=== PATIENT | male | born 1955 | race African-American/Black ===

== ENCOUNTER → 2016-11-21 | Outpatient (REF) | payer OTHER ==
[~2016-11-21] MED LIST: ASPI1TAB PO; ATOR1TAB21 PO; AUGM500T34 PO; CELE-19 PO; CLON0.5T PO; CYMB60CA3 PO; D400400C PO; DOXA1TAB49 PO; GLIM2TA PO; HYZA100T6 PO; KLOR1POW2 PO; LORA10TA2 PO; LYRI300C PO; OMEP10CASR PO; SITA50TAB PO; TOPR100T PO; [UNRECOGNIZED DRUG - CODE] PO; janumet PO
[2016-11-21 13:22] LABS: BASO # 0.1 K/mm3 (0.0-0.2); BASO % 1.5 % (0.0-1.0); EOS # 0.3 K/mm3 (0.0-0.50); EOS % 5.9 % (0.0-3.0); LARGE UNSTAINED CELL # 0.1 K/mm3 (0.0-0.4); LARGE UNSTAINED CELL % 2.8 % (0.0-4.0); LYMPH # 1.5 K/mm3 (1.5-4.5); LYMPH % 30.2 % (24.0-44.0); MEAN CORPUSCULAR HEMOGLOBIN 31.2 pg (27.0-33.0); MEAN CORPUSCULAR VOLUME 91.6 fl (80.0-96.0); MONO # 0.4 K/mm3 (0.0-0.8); MONO % 8.4 % (0.0-5.0); NEUTROPHILS # 2.3 K/mm3 (1.8-7.7); NEUTROPHILS % 51.4 % (36.0-66.0); PLATELET COUNT, AUTOMATED 184 k/mm3 (150-450); RED CELL DISTRIBUTION WIDTH 12.8 % (11.5-14.5); WHITE BLOOD COUNT 4.4 K/mm3 (4.0-10.0)
[2016-11-21 13:48] LABS: ALBUMIN 4.2 GM/DL (3.2-5.2); ALKALINE PHOSPHATASE 86 U/L (45-117); ALT/SGPT 21 U/L (12-78); ANION GAP 7 MEQ/L (8-16); AST/SGOT 17 U/L (15-37); BILIRUBIN,TOTAL 0.7 MG/DL (0.2-1.0); BLOOD UREA NITROGEN 16 MG/DL (7-18); CALCIUM LEVEL 9.5 MG/DL (8.8-10.2); CARBON DIOXIDE LEVEL 33 MEQ/L (21-32); CHLORIDE LEVEL 99 MEQ/L (98-107); CHOLESTEROL LEVEL 181 MG/DL (<200); GLOMERULAR FILTRATION RATE > 60.0 (>49); GLUCOSE, FASTING 127 MG/DL (80-110); PERCENT SATURATION 32.4 % (19.7-37.4); POTASSIUM SERUM 4.5 MEQ/L (3.5-5.1); SODIUM LEVEL 139 MEQ/L (136-145); TOTAL IRON BINDING CAPACITY 336 UG/DL (250-450); TRIGLYCERIDES LEVEL 161 MG/DL (<150)
== END ==
LOC: M LABNEURO 13:03
PROVIDERS: ATTEND Emergency Medicine
DX: D50.9 Iron deficiency anemia, unspecified (principal); E11.42 Type 2 diabetes mellitus with diabetic polyneuropathy; I10 Essential (primary) hypertension; E78.2 Mixed hyperlipidemia; E55.9 Vitamin D deficiency, unspecified

== ENCOUNTER → 2017-02-09 | Outpatient (REF) | payer OTHER ==
[~2017-02-09] MED LIST changes: -CELE-19 PO; +CELE1CAP4 PO
[2017-02-09 13:32] LABS: ANION GAP 8 MEQ/L (8-16); BLOOD UREA NITROGEN 13 MG/DL (7-18); CALCIUM LEVEL 9.6 MG/DL (8.8-10.2); CARBON DIOXIDE LEVEL 29 MEQ/L (21-32); CHLORIDE LEVEL 101 MEQ/L (98-107); CREATININE FOR GFR 1.11 MG/DL (0.70-1.30); GLOMERULAR FILTRATION RATE > 60.0 (>49); GLUCOSE, FASTING 145 MG/DL (80-110); POTASSIUM SERUM 4.2 MEQ/L (3.5-5.1); SODIUM LEVEL 138 MEQ/L (136-145)
== END ==
LOC: M LABNEURO 12:58
PROVIDERS: ATTEND Psychiatry & Neurology Neurology
DX: R26.9 Unspecified abnormalities of gait and mobility (principal); R93.0 Abnormal findings on diagnostic imaging of skull and head, not elsewhere classified

== ENCOUNTER → 2017-07-20 | Outpatient (CLI) | payer OTHER ==
[2017-07-20 08:51] LABS: ALBUMIN/GLOBULIN RATIO 1.33 (1.00-1.93); ALKALINE PHOSPHATASE 90 U/L (45-117); ALT/SGPT 25 U/L (12-78); ANION GAP 8 MEQ/L (8-16); AST/SGOT 18 U/L (7-37); BILIRUBIN,TOTAL 0.4 MG/DL (0.2-1.0); BLOOD UREA NITROGEN 15 MG/DL (7-18); CARBON DIOXIDE LEVEL 27 MEQ/L (21-32); CHLORIDE LEVEL 108 MEQ/L (98-107); CHOLESTEROL LEVEL 192 MG/DL (<200); CREATININE FOR GFR 0.85 MG/DL (0.70-1.30); GLOMERULAR FILTRATION RATE > 60.0 (>49); GLUCOSE, FASTING 129 MG/DL (80-110); HDL CHOLESTEROL 48 MG/DL (>40); NON-HDL-C 144 MG/DL; POTASSIUM SERUM 3.7 MEQ/L (3.5-5.1); SODIUM LEVEL 143 MEQ/L (136-145); TRIGLYCERIDES LEVEL 100 MG/DL (<150)
[2017-07-20 09:21] LABS: MALB URINE SIEMENS 91.4 MG/L; MAU/CREAT RATIO 63.9 MCG/MG (0.0-30.0)
[2017-07-20 09:32] LABS: ESTIMATED AVERAGE GLUCOSE 166 MG/DL (60-110); HEMOGLOBIN A1c 7.4 %
[2017-07-20 09:56] LABS: TOTAL 25(OH) VITAMIN D 39.1 NG/ML (30.0-100.0)
== END ==
LOC: M LAB 07:38
DX: I10 Essential (primary) hypertension (principal); E78.2 Mixed hyperlipidemia; E55.9 Vitamin D deficiency, unspecified; E11.40 Type 2 diabetes mellitus with diabetic neuropathy, unspecified

== ENCOUNTER → 2017-07-20 | Outpatient (CLI) | payer OTHER | LOC: M RAD 07:17 | DX: J32.9 Chronic sinusitis, unspecified (principal) ==

== ENCOUNTER → 2017-10-07 | Outpatient (CLI) | payer OTHER ==
[2017-10-07 10:00] LABS: FOLLICLE STIMULATING HORMONE 5.3 mIU/mL (1.4-18.1); LUTEINIZING HORMONE 3.4 mIU/mL (1.5-9.3)
[2017-10-09 00:07] LABS: TESTOSTERONE FREE (DIRECT) 7.6 pg/mL (6.6-18.1)
== END ==
LOC: M LAB 08:07
DX: R53.83 Other fatigue (principal)
CPT/HCPCS: 83001

== ENCOUNTER → 2017-11-16 | Outpatient (CLI) | payer OTHER ==
[2017-11-16 08:32] LABS: BASO # 0.1 10^3/uL (0.0-0.2); BASO % 2.2 % (0.0-1.0); EOS # 0.3 10^3/uL (0.0-0.50); EOS % 7.6 % (0.0-3.0); HEMATOCRIT 48.3 % (42.0-52.0); HEMOGLOBIN 16.4 g/dl (13.5-17.5); IMMATURE GRANULOCYTE % 0.3 % (0-3.0); LYMPH # 1.3 10^3/uL (1.5-4.5); LYMPH % 35.5 % (24.0-44.0); MEAN CORPUSCULAR HEMOGLOBIN 30.1 pg (27.0-33.0); MEAN CORPUSCULAR VOLUME 88.6 fl (80.0-96.0); MONO # 0.4 10^3/uL (0.0-0.8); MONO % 10.6 % (0.0-5.0); NEUTROPHILS # 1.6 10^3/uL (1.8-7.7); NEUTROPHILS % 43.8 % (36.0-66.0); PLATELET COUNT, AUTOMATED 214 10^3/uL (150-450); RED BLOOD COUNT 5.45 10^6/uL (4.30-6.10); RED CELL DISTRIBUTION WIDTH 13.2 % (11.5-14.5); WHITE BLOOD COUNT 3.7 10^3/uL (4.0-10.0)
[2017-11-16 08:58] LABS: ALBUMIN 4.2 GM/DL (3.2-5.2); ALBUMIN/GLOBULIN RATIO 1.27 (1.00-1.93); ALKALINE PHOSPHATASE 93 U/L (45-117); ALT/SGPT 26 U/L (12-78); ANION GAP 9 MEQ/L (8-16); AST/SGOT 20 U/L (7-37); BILIRUBIN,TOTAL 0.8 MG/DL (0.2-1.0); BLOOD UREA NITROGEN 14 MG/DL (7-18); CALCIUM LEVEL 9.1 MG/DL (8.8-10.2); CARBON DIOXIDE LEVEL 25 MEQ/L (21-32); CHLORIDE LEVEL 105 MEQ/L (98-107); CHOLESTEROL LEVEL 186 MG/DL (<200); CHOLESTEROL RISK RATIO 3.957 (<5); CREATININE FOR GFR 1.07 MG/DL (0.70-1.30); GLOMERULAR FILTRATION RATE > 60.0 (>49); GLUCOSE, FASTING 95 MG/DL (70-100); HDL CHOLESTEROL 47 MG/DL (>40); NON-HDL-C 139 MG/DL; POTASSIUM SERUM 3.8 MEQ/L (3.5-5.1); SODIUM LEVEL 139 MEQ/L (136-145); TOTAL PROTEIN 7.5 GM/DL (6.4-8.2); TRIGLYCERIDES LEVEL 120 MG/DL (<150)
[2017-11-16 09:07] LABS: MALB URINE SIEMENS 62.8 MG/L; MAU/CREAT RATIO 44.5 MCG/MG (0.0-30.0)
[2017-11-16 10:37] LABS: TOTAL 25(OH) VITAMIN D 35.8 NG/ML (30.0-100.0)
[2017-11-16 11:33] LABS: ESTIMATED AVERAGE GLUCOSE 131 MG/DL (60-110); HEMOGLOBIN A1c 6.2 %
== END ==
LOC: M LAB 07:50
DX: E11.69 Type 2 diabetes mellitus with other specified complication (principal); I10 Essential (primary) hypertension; E78.2 Mixed hyperlipidemia; E55.9 Vitamin D deficiency, unspecified; D50.9 Iron deficiency anemia, unspecified
CPT/HCPCS: 80053

== ENCOUNTER → 2018-04-12 | Outpatient (REF) | payer OTHER ==
[2018-04-12 13:44] LABS: BASO # 0.1 10^3/uL (0.0-0.2); BASO % 1.6 % (0.0-1.0); EOS # 0.4 10^3/uL (0.0-0.50); HEMATOCRIT 50.9 % (42.0-52.0); HEMOGLOBIN 16.9 g/dl (13.5-17.5); IMMATURE GRANULOCYTE % 0.3 % (0-3.0); LYMPH # 1.3 10^3/uL (1.5-4.5); LYMPH % 34.3 % (24.0-44.0); MEAN CORPUSCULAR HEMOGLOBIN 29.2 pg (27.0-33.0); MEAN CORPUSCULAR HGB CONC 33.2 g/dl (32.0-36.5); MEAN CORPUSCULAR VOLUME 88.1 fl (80.0-96.0); MONO # 0.4 10^3/uL (0.0-0.8); MONO % 9.8 % (0.0-5.0); NEUTROPHILS # 1.7 10^3/uL (1.8-7.7); PLATELET COUNT, AUTOMATED 224 10^3/uL (150-450); RED BLOOD COUNT 5.78 10^6/uL (4.30-6.10); RED CELL DISTRIBUTION WIDTH 13.9 % (11.5-14.5); WHITE BLOOD COUNT 3.8 10^3/uL (4.0-10.0)
[2018-04-12 13:58] LABS: ALBUMIN 4.2 GM/DL (3.2-5.2); ALBUMIN/GLOBULIN RATIO 1.35 (1.00-1.93); ALKALINE PHOSPHATASE 116 U/L (45-117); ALT/SGPT 23 U/L (12-78); ANION GAP 8 MEQ/L (8-16); AST/SGOT 19 U/L (7-37); BILIRUBIN,TOTAL 0.5 MG/DL (0.2-1.0); BLOOD UREA NITROGEN 15 MG/DL (7-18); CALCIUM LEVEL 9.3 MG/DL (8.8-10.2); CARBON DIOXIDE LEVEL 25 MEQ/L (21-32); CHLORIDE LEVEL 107 MEQ/L (98-107); CHOLESTEROL LEVEL 211 MG/DL (<200); CHOLESTEROL RISK RATIO 4.586 (<5); CREATININE FOR GFR 0.98 MG/DL (0.70-1.30); GLOMERULAR FILTRATION RATE > 60.0 (>49); GLUCOSE, FASTING 124 MG/DL (70-100); HDL CHOLESTEROL 46 MG/DL (>40); LDL CHOLESTEROL 137 MG/DL (<100); NON-HDL-C 165 MG/DL; POTASSIUM SERUM 4.6 MEQ/L (3.5-5.1); SODIUM LEVEL 140 MEQ/L (136-145); TOTAL PROTEIN 7.3 GM/DL (6.4-8.2); TRIGLYCERIDES LEVEL 138 MG/DL (<150)
[2018-04-12 14:27] LABS: TOTAL 25(OH) VITAMIN D 18.3 NG/ML (30.0-100.0)
[2018-04-12 14:29] LABS: ESTIMATED AVERAGE GLUCOSE 140 MG/DL (60-110); HEMOGLOBIN A1c 6.5 %
== END ==
LOC: M LABNEURO 08:07
DX: E11.69 Type 2 diabetes mellitus with other specified complication (principal); I10 Essential (primary) hypertension; E78.2 Mixed hyperlipidemia; E55.9 Vitamin D deficiency, unspecified; D50.9 Iron deficiency anemia, unspecified

== ENCOUNTER → 2018-07-26 | Outpatient (CLI) | payer OTHER ==
[~2018-07-26] MED LIST changes: -CLON0.5T PO; +CLON0.5T8 PO; +LORA-243 PO; -LORA10TA2 PO; -TOPR100T PO; +TOPR100T13 PO
--- NOTE | 2018-07-26 15:46 | REP ---
CT Head without contrast HISTORY: Syncope COMPARISON: None Areas of decreased attenuation are present in the periventricular white matter. This represents small-vessel ischemic disease. There is no intraparenchymal hemorrhage, acute infarct, mass or midline shift. The ventricular system and cortical sulci are dilated consistent with mild volume loss. There is no extra cerebral collection. There is no fracture. The visualized sinuses are clear. IMPRESSION: 1. Small vessel ischemic disease. 2. Mild volume loss. Electronically Signed by Kranthi Berger MD 07/26/2018 03:36 P
== END ==
LOC: M RAD 12:48
PROVIDERS: ATTEND Otolaryngology
DX: M26.69 Other specified disorders of temporomandibular joint (principal)

== ENCOUNTER → 2018-10-05 | Outpatient (CLI) | payer OTHER ==
--- NOTE | 2018-10-05 09:28 | REP ---
Urinary tract sonography with renal artery Doppler flow assessment: History: Poorly controlled hypertension resistant to three medicines. Morphologic findings: Scanning at the level of the urinary bladder shows that it is empty at the time of scanning. Renal cortical echogenicity pattern is normal and contours are smooth on both sides. There is a cyst in the upper pole region of the left kidney measuring 1.3 cm in greatest diameter. No hydronephrosis seen on either side. No mass or other cyst is seen. The left kidney measures 10.8 x 6.0 x 6.6 cm. Right renal dimensions of 10.0 x 6.6 x 6.0 cm. Renal Doppler study: Peak systolic flow velocity in the abdominal aorta at the level of the main renal arteries is normal at 80 cm/s. Peak systolic flow velocity in the left main renal artery is recorded at 128 and that in the right at 144 cm/s. Renal to aortic flow velocity ratios are therefore normal at 1.8 on the right and 1.6 on the left. Resistive indices and acceleration times are measured in the upper, mid, and lower pole intralobar arteries of each kidney. These values are normal bilaterally. Impression: Small parapelvic cyst left kidney. Otherwise normal. There is no renal Doppler evidence to suggest renal artery stenosis. Electronically Signed by Lucian Jensen MD 10/05/2018 11:29 A
== END ==
LOC: M RAD 06:43
PROVIDERS: ATTEND Family Medicine
DX: I10 Essential (primary) hypertension (principal); N28.1 Cyst of kidney, acquired

== ENCOUNTER → 2019-05-31 | Outpatient (CLI) | payer OTHER ==
[~2019-05-31] MED LIST changes: -ASPI1TAB PO; +ASPI81TA26 PO; -GLIM2TA PO; +GLIM2TAB29 PO; +TOPR100T PO; -TOPR100T13 PO
--- NOTE | 2019-05-31 16:34 | REP ---
CT paranasal sinuses: New 05/31/2019. Indication: Sinusitis. Comparison: 07/20/2017. Technique: Unenhanced axial images of the paranasal sinuses were performed with coronal reconstructions provided. Findings: Frothy secretions are noted within the posterior right maxillary sinus indicative of acute inflammation. Postoperative sequelae are present bilaterally. There is mild periosteal mucosal thickening throughout the ethmoid and maxillary sinuses. The sinonasal passageways are patent. The mastoid air cells are clear. No significant ocular, intraorbital or intracranial abnormalities are detected. Impression: Postoperative sequelae with acute on chronic paranasal sinus mucosal disease as described. Electronically Signed by Tavo Godwin DO 05/31/2019 04:25 P
== END ==
LOC: M RAD 15:29
PROVIDERS: ATTEND Family Medicine
DX: J32.0 Chronic maxillary sinusitis (principal)

== ENCOUNTER → 2019-07-28 | Outpatient (CLI) | payer OTHER ==
[~2019-07-28] MED LIST changes: +CLON0.5T2 PO; -CLON0.5T8 PO
== END ==
LOC: M LAB 08:18
PROVIDERS: ATTEND Physician Assistant
DX: R97.20 Elevated prostate specific antigen [PSA] (principal)

== ENCOUNTER → 2020-01-16 | Outpatient (CLI) | payer OTHER ==
--- NOTE | 2020-01-16 11:55 | REP ---
CT PARANASAL SINUSES: INDICATION: Sinusitis. TECHNIQUE: Unenhanced axial CT images of the paranasal sinuses were performed with coronal reconstructions provided. COMPARISON: 05/31/2019 FINDINGS: There are no air-fluid levels or frothy secretions to indicate an acute inflammation. Periosteal mucosal thickening is present within the ethmoid air cells particularly anteriorly as well as the left greater than right dependent maxillary sinuses. Subchondral cysts of the right TMJ is noted. The mastoid air cells are clear. The sinonasal passage ways are patent. Postoperative sequelae are noted. IMPRESSION: Chronic ethmoid and maxillary sinus disease as described. Unreviewed
== END ==
LOC: M RAD 09:43
PROVIDERS: ATTEND Otolaryngology
DX: J32.0 Chronic maxillary sinusitis (principal); J32.2 Chronic ethmoidal sinusitis

== ENCOUNTER → 2020-01-30 | Outpatient (CLI) | payer OTHER ==
[~2020-01-30] MED LIST changes: +BACL10TA2 PO; +DIAZ5TAB PO; +METH1TAB40 PO; +TRIA0.2571 PO; +TRUL0.5I INJ
== END ==
LOC: M LAB 10:33
PROVIDERS: ATTEND Otolaryngology
DX: J31.0 Chronic rhinitis (principal)

== ENCOUNTER 2020-02-27 08:40 | Day surgery (SDC) | payer OTHER ==
[~2020-02-27 08:40] MED LIST changes: -BACL10TA2 PO; -DIAZ5TAB PO; -METH1TAB40 PO; -TRIA0.2571 PO; -TRUL0.5I INJ
[2020-02-27] MEDS ORDERED: LIDOCAINE W/EPINEPHRINE 1% 20ML VIAL As Ordered ONE (09:42)
[2020-02-27] MEDS ORDERED: METHYLENE BLUE 0.5% (5MG/ML) 10 ML AMP (PROVAYBLUE) As Ordered ONE (09:45)
[2020-02-27] MEDS ORDERED: OXYMETAZOLINE 0.05% NASAL SPRAY (AFRIN) As Ordered ONE (09:46)
[2020-02-27] MEDS ORDERED: EPINEPHrine 1MG/ML INJ 30ML MD-VIAL As Ordered ONE (09:46)
[2020-02-27] MEDS ORDERED: MIDAZOLAM INJ 2MG/2ML VIAL (J2250 PER 1MG) As Ordered ONE (09:50)
[2020-02-27] MEDS ORDERED: LIDOCAINE 2% 100MG/5ML SDV (FOR ANES.) As Ordered ONE (09:50)
[2020-02-27] MEDS ORDERED: ROCURONIUM BROMIDE 50 MG/5 ML VIAL As Ordered ONE (09:50)
[2020-02-27] MEDS ORDERED: fentaNYL 100 MCG/2 ML INJECTION (J3010) As Ordered ONE (09:50)
[2020-02-27] MEDS ORDERED: METOCLOPRAMIDE INJ 10MG/2ML VIAL (J2765 PER 1) As Ordered ONE (09:51)
[2020-02-27] MEDS ORDERED: ePHEDrine SULFATE 25 MG/5 ML(5MG/ML) SYRINGE As Ordered ONE (09:51)
[2020-02-27] MEDS ORDERED: ONDANSETRON 4MG/2ML VIAL As Ordered ONE (09:54)
[2020-02-27] MEDS ORDERED: SUGAMMADEX SODIUM 500 MG/5 ML VIAL (BRIDION) As Ordered ONE (09:55)
--- NOTE | 2020-04-19 11:37 | RO ---
DATE OF OPERATION: 02/27/2020 PREOPERATIVE DIAGNOSIS: Chronic rhinitis. POSTOPERATIVE DIAGNOSIS: Chronic rhinitis. OPERATIVE PROCEDURE: Bilateral turbinectomy. DESCRIPTION OF PROCEDURE: Under general anesthesia with the patient intubated, the patient was draped in the usual manner. I used pledgets of adrenaline 1:100,000 infiltrated with Lidocaine and epinephrine. I made an incision anterior to the inferior turbinate on both sides. I elevated the mucoperichondrium off of the mari. Then using the microdebrider, I removed portions of the mari anteriorly. I did use forceps to do this as well. Once this was done, then I sutured the wound closed with 4-0 Chromic. The patient tolerated the procedure well and was transferred to the recovery room in excellent condition. Minimal blood loss. SONAM
== END 2020-02-27 12:12 | disposition home or self-care (01) ==
LOC: M SDC 08:40
PROVIDERS: ATTEND Otolaryngology
DX: J31.0 Chronic rhinitis (principal); J45.909 Unspecified asthma, uncomplicated; F32.9 Major depressive disorder, single episode, unspecified; F41.9 Anxiety disorder, unspecified; E11.9 Type 2 diabetes mellitus without complications; I10 Essential (primary) hypertension; Z79.899 Other long term (current) drug therapy
CPT/HCPCS: 30802; J2250; J2405; J2765; J3010; Q9968

== ENCOUNTER 2020-05-19 12:01 | Emergency (ER) | payer OTHER ==
[~2020-05-19] VITALS: Ht 188 cm; Wt 102.3 kg
[2020-05-19] MEDS ORDERED: TRIA0.2571 PO (12:12)
[2020-05-19] MEDS ORDERED: METH1TAB40 PO (12:12)
[2020-05-19] MEDS ORDERED: DIAZ5TAB PO (12:12)
[2020-05-19] MEDS ORDERED: TRUL0.5I INJ (12:12)
[2020-05-19] MEDS ORDERED: NS 1,000 ML IV ONE (12:45)
--- NOTE | 2020-05-19 13:02 | REP ---
INDICATION: R/O DVT. COMPARISON: None TECHNIQUE: Multiple ultrasonographic images of the deep venous structures of the right thigh were obtained from the level of the common femoral vein to the popliteal vein in the longitudinal and transverse scan planes along with Doppler interrogation and color flow Doppler imaging. FINDINGS: There is no abnormal echogenic material seen within any of the visualized deep venous structures that would suggest acute thrombosis. Coaptation is unremarkable throughout. Doppler interrogation shows an expected response to respiratory variability and augmentation. The color flow Doppler images show what appears to be a normal vascular pattern throughout. IMPRESSION: There is no ultrasonographic evidence of deep venous thrombosis involving any of the visualized deep venous structures of the right thigh as described above. Accredited by the [employer] in Vascular Peripheral Ultrasound. <Electronically signed by Elkin John > 05/19/20 [id number]
[2020-05-19 13:37] LABS: BASO # 0.1 10^3/uL (0.0-0.2); BASO % 1.3 % (0.0-1.0); EOS # 0.4 10^3/uL (0.0-0.5); EOS % 6.8 % (0.0-3.0); HEMATOCRIT 42.9 % (42.0-52.0); HEMOGLOBIN 14.2 g/dl (13.5-17.5); LYMPH # 2.3 10^3/uL (1.5-5.0); LYMPH % 42.4 % (24.0-44.0); MEAN CORPUSCULAR HEMOGLOBIN 29.9 pg (27.0-33.0); MEAN CORPUSCULAR HGB CONC 33.1 g/dl (32.0-36.5); MEAN CORPUSCULAR VOLUME 90.3 fl (80.0-96.0); MONO # 0.5 10^3/uL (0.0-0.8); MONO % 8.3 % (0.0-5.0); NEUTROPHILS # 2.2 10^3/uL (1.5-8.5); PLATELET COUNT, AUTOMATED 250 10^3/uL (150-450); RED BLOOD COUNT 4.75 10^6/uL (4.30-6.10); WHITE BLOOD COUNT 5.5 10^3/uL (4.0-10.0)
[2020-05-19 13:52] LABS: INR 0.92; PROTHROMBIN TIME 12.5 SECONDS (12.5-14.3)
[2020-05-19 13:56] LABS: ALBUMIN 4.1 GM/DL (3.2-5.2); ALT/SGPT 27 U/L (12-78); BILIRUBIN,DIRECT < 0.1 MG/DL (0.0-0.2); BILIRUBIN,TOTAL 0.3 MG/DL (0.2-1.0); C REACTIVE PROTEIN QUANTITATIV < 0.30 MG/DL (0.00-0.30); CPK CREATINE PHOSPHOKINASE 300 U/L (39-308); TOTAL PROTEIN 7.1 GM/DL (6.4-8.2)
[2020-05-19 14:26] LABS: ERYTHROCYTE SEDIMENTATION RATE 5 mm/hr (0-20)
[2020-05-19] MEDS ORDERED: CYCLOBENZAPRINE 5MG TABLET PO ONE (14:30)
[2020-05-19] MEDS ORDERED: diazePAM 5 MG TAB PO ONE (14:30)
--- NOTE | 2020-05-19 16:46 | REP ---
INDICATION: pain. COMPARISON: Left hip 04/14/2016. TECHNIQUE: AP pelvis and 2 coned-down views right hip. FINDINGS: AP pelvis: The sacral ala and SI joints are grossly intact. Appears to be sacralization of transverse processes bilaterally at L5 in a fairly symmetric fashion. These have fused to the 1st sacral segment superiorly. There. Small acetabular roof spur noted and a tiny femoral head spur on the frogleg view seen representing very minimal degenerative change no destructive lesion or erosions AVN or other acute finding intertrochanteric and subtrochanteric femur normal is a sclerotic bone island in the acetabular roof on the left unchanged from 2016. Marginal osteophytes are seen at the acetabular roof bilaterally with subchondral cyst peripherally and mild sclerosis. No femoral head sclerosis, cystic changes, flattening or lucencies. Pelvic ring is intact iliac wings intact pubic rami and symphysis pubis unremarkable the hips and proximal femoral shaft show no acute finding. Right hip: AP and frogleg views show hip joint space preserved and symmetric to that on the left side IMPRESSION: 1. Minimal degenerative changes at the hip, otherwise negative. <Electronically signed by Elkin John > 05/19/20 [id number]
[2020-05-19] MEDS ORDERED: BACL10TA2 PO (17:17)
[2020-05-19 17:23] VITALS: BP 141/84
== END 2020-05-19 17:28 | disposition home or self-care (01) ==
LOC: M ED 12:01
DX: M62.838 Other muscle spasm (principal); E11.9 Type 2 diabetes mellitus without complications; I10 Essential (primary) hypertension; J45.909 Unspecified asthma, uncomplicated; E78.5 Hyperlipidemia, unspecified; G62.9 Polyneuropathy, unspecified; K21.9 Gastro-esophageal reflux disease without esophagitis; Z79.899 Other long term (current) drug therapy; Z88.8 Allergy status to other drugs, medicaments and biological substances

== ENCOUNTER → 2020-09-23 | Outpatient (CLI) | payer OTHER ==
[~2020-09-23] MED LIST changes: +BACL10TA2 PO; +DIAZ5TAB PO; +METH-1164 PO; +TRIA0.2571 PO; +TRUL0.5I INJ
--- NOTE | 2020-09-24 17:20 | SLEEPCENT ---
NOCTURNAL POLYSOMNOGRAPHY CPAP TITRATION DATE: 09/23/2020 ORDERED BY: Kathrine Hess NP Nocturnal polysomnography was performed for retitration of pressure therapy in this patient with obstructive sleep apnea syndrome currently using a BiLevel device. For testing a [employer]pir[employer] Tere[employer] View full face mask of medium size was used, an initial pressure of inspiratory 10/expiratory 4 was applied to the circuit, and the lights were extinguished. 7 hours and 44 minutes of data were reviewed. There were 280.5 minutes of sleep identified. Sleep latency was normal at 11.5 minutes. REM latency was delayed at 140.5 minutes. Sleep architecture was fair with three REM cycles. Overall sleep efficiency was 61.6%. The electrocardiogram showed a sinus rhythm with an average heart rate of 70 beats per minute. EEG showed normal waveforms for wake and sleep. Persistence of hypopneic respiratory events prompted an increase in CPAP pressure. Best sleep was seen on an inspiratory pressure of 11/expiratory pressure of 5. There was some minor limb activity noted early in the study. Limb movement arousal index was 3.9. IMPRESSION: Obstructive sleep apnea syndrome (G47.33). RECOMMENDATION: Nightly use of BiLevel pressure therapy inspiratory pressure 11/expiratory pressure of 5.
== END ==
LOC: M SLEEP 20:00
PROVIDERS: ATTEND Internal Medicine Pulmonary Disease
DX: G47.33 Obstructive sleep apnea (adult) (pediatric) (principal)

== ENCOUNTER 2020-10-27 12:03 | Emergency (ER) | payer OTHER ==
[~2020-10-27] VITALS: Ht 188 cm; Wt 111.4 kg
[2020-10-27] MEDS ORDERED: LANO454C (12:20)
[2020-10-27] MEDS ORDERED: AMLO1TAB25 (12:20)
[2020-10-27] MEDS ORDERED: TRIA1OI (12:20)
[2020-10-27] MEDS ORDERED: MONT10TA10 (12:20)
[2020-10-27] MEDS ORDERED: ROSU5TAB5 (12:20)
[2020-10-27] MEDS ORDERED: predniSONE 20 MG TAB PO ONE (13:55)
[2020-10-27] MEDS ORDERED: PRED20TA PO (14:36)
[2020-10-27 14:44] LABS: BASO # 0.1 10^3/uL (0.0-0.2); BASO % 1.6 % (0.0-1.0); EOS # 0.3 10^3/uL (0.0-0.5); EOS % 6.7 % (0.0-3.0); HEMATOCRIT 47.5 % (42.0-52.0); HEMOGLOBIN 16.1 g/dl (13.5-17.5); LYMPH # 1.7 10^3/uL (1.5-5.0); LYMPH % 38.8 % (24.0-44.0); MEAN CORPUSCULAR HEMOGLOBIN 30.6 pg (27.0-33.0); MEAN CORPUSCULAR HGB CONC 33.9 g/dl (32.0-36.5); MEAN CORPUSCULAR VOLUME 90.1 fl (80.0-96.0); MONO # 0.5 10^3/uL (0.0-0.8); MONO % 11.1 % (2.0-8.0); NEUTROPHILS # 1.8 10^3/uL (1.5-8.5); NEUTROPHILS % 41.8 % (36.0-66.0); PLATELET COUNT, AUTOMATED 245 10^3/uL (150-450); RED BLOOD COUNT 5.27 10^6/uL (4.30-6.10); WHITE BLOOD COUNT 4.3 10^3/uL (4.0-10.0)
[2020-10-27 15:06] LABS: AMPHETAMINES LEVEL URINE NEGATIVE (NEGATIVE); BARBITURATES URINE NEGATIVE (NEGATIVE); BENZODIAZEPINES URINE NEGATIVE (NEGATIVE); CANNABINOIDS URINE NEGATIVE (NEGATIVE); COCAINE METABOLITE URINE NEGATIVE (NEGATIVE); METHADONE URINE NEGATIVE (NEGATIVE); OPIATES URINE NEGATIVE (NEGATIVE); PHENCYCLIDINE URINE NEGATIVE (NEGATIVE)
[2020-10-27 15:10] LABS: ALBUMIN 4.2 GM/DL (3.2-5.2); ALT/SGPT 19 U/L (12-78); BILIRUBIN,DIRECT 0.2 MG/DL (0.0-0.2); BILIRUBIN,TOTAL 0.5 MG/DL (0.2-1.0); BLOOD UREA NITROGEN 11 MG/DL (7-18); CALCIUM LEVEL 9.2 MG/DL (8.8-10.2); CARBON DIOXIDE LEVEL 26 MEQ/L (21-32); CHLORIDE LEVEL 107 MEQ/L (98-107); COMPLEMENT C4 28 MG/DL (10-40); CREATININE FOR GFR 0.79 MG/DL (0.70-1.30); GLOMERULAR FILTRATION RATE > 60.0 (>49); GLUCOSE, FASTING 89 MG/DL (70-100); POTASSIUM SERUM 3.9 MEQ/L (3.5-5.1); SODIUM LEVEL 138 MEQ/L (136-145); TOTAL PROTEIN 7.2 GM/DL (6.4-8.2)
[2020-10-27 15:12] LABS: ERYTHROCYTE SEDIMENTATION RATE 3 mm/hr (0-20)
[2020-10-27 15:43] VITALS: BP 134/95
[2020-10-29 15:11] LABS: HIV 1&2 SCREEN CENTAUR NEGATIVE (NEGATIVE)
[2020-10-31 14:14] LABS: TRYPTASE 4.5 ug/L (2.2-13.2)
== END 2020-10-27 15:57 | disposition home or self-care (01) ==
LOC: M ED 12:03
DX: R21 Rash and other nonspecific skin eruption (principal); L29.9 Pruritus, unspecified; F33.9 Major depressive disorder, recurrent, unspecified; Z79.899 Other long term (current) drug therapy; Z88.8 Allergy status to other drugs, medicaments and biological substances

== ENCOUNTER 2020-11-13 13:38 | Emergency (ER) | payer OTHER ==
[~2020-11-13] VITALS: Ht 188 cm; Wt 108.2 kg
[~2020-11-13 13:38] MED LIST changes: +AMLO1TAB25; +LANO454C; +MONT10TA10; +PRED20TA PO; +ROSU5TAB5; +TRIA1OI
[2020-11-13] MEDS ORDERED: NS 500 ML IV ONE (14:45)
[2020-11-13] MEDS ORDERED: ACETAMINOPHEN 325 MG TAB PO ONE (14:45)
[2020-11-13 15:36] LABS: BASO % 0.2 % (0.0-1.0); EOS % 0.2 % (0.0-3.0); HEMATOCRIT 46.5 % (42.0-52.0); HEMOGLOBIN 15.7 g/dl (13.5-17.5); LYMPH # 0.7 10^3/uL (1.5-5.0); LYMPH % 16.9 % (24.0-44.0); MEAN CORPUSCULAR HEMOGLOBIN 30.1 pg (27.0-33.0); MEAN CORPUSCULAR HGB CONC 33.8 g/dl (32.0-36.5); MEAN CORPUSCULAR VOLUME 89.3 fl (80.0-96.0); MONO # 0.5 10^3/uL (0.0-0.8); MONO % 10.9 % (2.0-8.0); NEUTROPHILS # 3.1 10^3/uL (1.5-8.5); NEUTROPHILS % 71.3 % (36.0-66.0); PLATELET COUNT, AUTOMATED 145 10^3/uL (150-450); RED BLOOD COUNT 5.21 10^6/uL (4.30-6.10); WHITE BLOOD COUNT 4.3 10^3/uL (4.0-10.0)
[2020-11-13 15:47] LABS: INR 0.91; PROTHROMBIN TIME 12.4 SECONDS (12.5-14.3)
[2020-11-13 15:48] LABS: PARTIAL THROMBOPLASTIN TIME 30.7 SECONDS (24.2-38.5)
[2020-11-13] MEDS ORDERED: dexameTHASONE 20MG/5ML VIAL (J1100 PER 1MG) IV ONE (15:50)
[2020-11-13 15:51] LABS: D-DIMER QUANT 346.95 ng/ml (<500)
[2020-11-13 16:18] LABS: ALBUMIN 3.4 GM/DL (3.2-5.2); ALT/SGPT 28 U/L (12-78); BILIRUBIN,TOTAL 0.5 MG/DL (0.2-1.0); BLOOD UREA NITROGEN 10 MG/DL (7-18); C REACTIVE PROTEIN QUANTITATIV 6.55 MG/DL (0.00-0.30); CALCIUM LEVEL 8.8 MG/DL (8.8-10.2); CARBON DIOXIDE LEVEL 25 MEQ/L (21-32); CHLORIDE LEVEL 102 MEQ/L (98-107); CK-MB VALUE MASS < 1.0 NG/ML (<3.6); CPK CREATINE PHOSPHOKINASE 145 U/L (39-308); FERRITIN 142 NG/ML (26-388); GLOMERULAR FILTRATION RATE > 60.0 (>49); GLUCOSE, FASTING 182 MG/DL (70-100); LDH LACTATE DEHYDROGENASE 306 U/L (87-241); MAGNESIUM LEVEL 1.8 MG/DL (1.8-2.4); MB/CK RELATIVE INDEX 0.69 (< OR =4); POTASSIUM SERUM 4.7 MEQ/L (3.5-5.1); SODIUM LEVEL 136 MEQ/L (136-145); TOTAL PROTEIN 6.8 GM/DL (6.4-8.2); TROPONIN I < 0.02 NG/ML (< 0.10)
[2020-11-13] MEDS ORDERED: CEFD1CAP8 PO (16:45)
[2020-11-13] MEDS ORDERED: AZIT500T5 PO (16:45)
[2020-11-13 17:02] VITALS: BP 128/79
== END 2020-11-13 17:08 | disposition home or self-care (01) ==
LOC: M ED 13:38
DX: J84.9 Interstitial pulmonary disease, unspecified (principal); U07.1 COVID-19; E11.9 Type 2 diabetes mellitus without complications; I10 Essential (primary) hypertension; J45.909 Unspecified asthma, uncomplicated; K21.9 Gastro-esophageal reflux disease without esophagitis; Z79.899 Other long term (current) drug therapy; Z88.8 Allergy status to other drugs, medicaments and biological substances
CPT/HCPCS: 80053; 82550; 82553; 82728; 83605; 83615; 83735; 84145; 84484; 85025; 85379; 85384; 85610; 85730; 86140; 87040; 96361; 96374; 99284; J1100

== ENCOUNTER 2020-11-13 17:09 | Outpatient (CLI) | payer OTHER ==
--- NOTE | 2020-11-13 17:01 | IPNPDOC ---
Subjective Date Seen The patient was seen on 11/13/20. Subjective Chief Complaint/HPI Mr. Chahal is a 65 year old male with hypertension, DM type 2, and asthma who presents with dyspnea and cough. Prior to symptoms starting, he had a rash attributed to stress. When stressor resolved, rash disappeared. Then 6 days ago, he started to have a sore throat which progressed to dyspnea and a dry cough. He had fever and chills. He was not feeling well. He had a chest xray which demonstrated bilateral pneumonia. He was picking up antibiotics, when he was called by [facility]. He was instructed to go to the ED for further evaluation as he was COVID positive. He is not sure how he caught COVID. He has been staying at home with his due to his rash. While here, he has not been hypoxic. He did have a fever of 100.7. WBC within normal limits at 4.3. CRP elevated at 6.55. Discussed risks and benefits of monoclonal antibodies, and he was agreeable. He signed consent. Procalcitonin has not returned at this time. I will send antibiotics to his pharmacy. PMH 1. Hyperlipidemia 2. Hypertension 3. Asthma 4. Diabetes mellitus type 2 PSH 1. Bilateral shoulder repair 2. Right breast cyst removed at age of 11 Social history Denies smoking, alcohol, or recreational drugs Family history Father: History of SD Mother: History of DM type 1 and heart valvular disease --- Constitutional: Reports: Chills, Fever, Malaise Eyes: Denies: Vision change ENT: Reports: Sore Throat (Started 6 days ago when COVID symptoms started) Skin: Denies: Rash Pulmonary: Reports: Dyspnea, Cough (Dry cough) Cardiovascular: Denies: Chest Pain Gastrointestinal: Denies: Abdominal Pain Genitourinary: Denies: Dysuria Hematologic: Denies: Bruising Neurological: Denies: Numbness Psych: Reports: Anxiety Assessment /Plan Assessment Mr. Chahal is a 65 year old male with hypertension, DM type 2, and asthma who presents with dyspnea and cough. He was found to be COVID 19 positive with bilateral pneumonia. This may be from COVID and not a bacterial infection. No leukocytosis and not hypoxic. Patient agreed to monoclonal antibodies which may reduce the risk of progression of the COVID infection. Since procalcitonin has not returned, will start on cefdinir for 5 days and azithromycin for 3 days. Plan/VTE VTE Prophylaxis Ordered?: No (ambulatory, will be going home today) Plan 1. COVID 19 respiratory infection -Receiving Casirvimab and Imdevimab today -Imaging demonstrated bilateral pneumonia. Will send patient home with cefdinir and azithromycin pending procalcitonin results. -May go home after observational period for monoclonal antibiodies 2. Diabetes mellitus type 2 -Will order carbohydrate consistent diet -Continue with diabetic medications at home 3. Lactic acidosis -No signs of hypoxia or hypotension. Unlikely due to hypoperfusion -Received IV fluids Disposition: Home after observational period for monoclonal antibodies BREN PENA DO November 13, 2020 17:01
[~2020-11-13 17:09] MED LIST changes: +ALBUTEROL 90 MCG/ACT 8GM HFA INHALER INH PRN; +ALBUTEROL SULFATE 2.5 MG/0.5 ML INH NEB SOLN INH PRN; +AZIT500T5 PO; +CEFD1CAP8 PO; +EPINEPHrine INJ 1 MG/ML 1ML AMP IM PRN; +NS 1,000 ML IV SCH; +diphenhydrAMINE 50MG/ML VIAL (J1200) IV PRN; +methylPREDNISolone 125MG 2ML VIAL IV PRN
[2020-11-13 17:13] VITALS: BP 121/80
[2020-11-13] MEDS ORDERED: [UNRECOGNIZED DRUG - OTHER] IV ONE (19:00)
[2020-11-13 19:58] VITALS: BP 143/82
[2020-11-13 21:12] VITALS: BP 134/71
== END 2020-11-13 21:20 | disposition home or self-care (01) ==
LOC: M OPCLI4 17:09 → M 4MAIN 17:09 → M OPCLI4 21:20
PROVIDERS: ATTEND Internal Medicine
DX: U07.1 COVID-19 (principal); Z88.8 Allergy status to other drugs, medicaments and biological substances

== ENCOUNTER → 2020-12-25 | Outpatient (CLI) | payer OTHER ==
[~2020-12-25] MED LIST changes: -ALBUTEROL 90 MCG/ACT 8GM HFA INHALER INH PRN; -ALBUTEROL SULFATE 2.5 MG/0.5 ML INH NEB SOLN INH PRN; -EPINEPHrine INJ 1 MG/ML 1ML AMP IM PRN; -NS 1,000 ML IV SCH; -diphenhydrAMINE 50MG/ML VIAL (J1200) IV PRN; -methylPREDNISolone 125MG 2ML VIAL IV PRN
--- NOTE | 2020-12-25 07:45 | PFTRPT ---
Height: 74.00 Inches Weight: 244.00 Lbs BSA: 2.36 Diagnosis: J45.20 DATE: 12/25/2020 ORDERING PHYSICIAN: CLINTON SCHNEIDER DO, FCCP Pre and post bronchodilator studies have excellent technical quality. Forced vital capacity is reduced. FEV1 is in proportion. Obstructive index is therefore normal. Expiratory limit of the flow-volume loop does suggest some degree of flow rate limitation. No significant bronchodilator response is identified. Total lung capacity is normal. Residual volume is borderline. Diffusing capacity is normal and remains normal when corrected for alveolar volume. Hemoglobin is acceptable at 13. Airway resistance and conductance are normal. IMPRESSION: Nonspecific flow rate limitation versus underlying air trapping. Please correlate clinically. MTDD
== END ==
LOC: M CARPUL 06:45
PROVIDERS: ATTEND Internal Medicine Pulmonary Disease
DX: J45.20 Mild intermittent asthma, uncomplicated (principal)

== ENCOUNTER → 2020-12-26 | Outpatient (CLI) | payer OTHER ==
--- NOTE | 2020-12-26 08:23 | REP ---
INDICATION: MILD INTERMITTENT ASTHMA, UNCOMPLICATED COMPARISON: 02/10/2020 TECHNIQUE: PA and lateral. FINDINGS: The mediastinum and cardiac silhouette are normal. The lung darden are clear and without acute consolidation, effusion, or pneumothorax. The skeletal structures are intact and normal. IMPRESSION: No acute cardiopulmonary process. <Electronically signed by Milan Crmup > 12/26/20 0819
[2020-12-26 08:52] LABS: BASO # 0.1 10^3/uL (0.0-0.2); EOS # 0.5 10^3/uL (0.0-0.5); EOS % 11.9 % (0.0-3.0); HEMATOCRIT 41.8 % (42.0-52.0); HEMOGLOBIN 13.9 g/dl (13.5-17.5); LYMPH # 1.8 10^3/uL (1.5-5.0); LYMPH % 40.3 % (24.0-44.0); MEAN CORPUSCULAR HGB CONC 33.3 g/dl (32.0-36.5); MEAN CORPUSCULAR VOLUME 90.3 fl (80.0-96.0); MONO # 0.4 10^3/uL (0.0-0.8); MONO % 9.5 % (2.0-8.0); NEUTROPHILS # 1.6 10^3/uL (1.5-8.5); NEUTROPHILS % 36.1 % (36.0-66.0); PLATELET COUNT, AUTOMATED 205 10^3/uL (150-450); RED BLOOD COUNT 4.63 10^6/uL (4.30-6.10); WHITE BLOOD COUNT 4.4 10^3/uL (4.0-10.0)
== END ==
LOC: M LAB 07:37
PROVIDERS: ATTEND Internal Medicine Pulmonary Disease
DX: J45.20 Mild intermittent asthma, uncomplicated (principal); U07.1 COVID-19

== ENCOUNTER → 2020-12-26 | Outpatient (CLI) | payer OTHER | LOC: M RAD 07:48 | PROVIDERS: ATTEND Internal Medicine Pulmonary Disease | DX: J45.20 Mild intermittent asthma, uncomplicated (principal); U07.1 COVID-19 ==

== ENCOUNTER → 2021-10-28 | Outpatient (CLI) | payer MEDICARE, OTHER ==
[~2021-10-28] MED LIST changes: -AMLO1TAB25; +AMLO1TAB25 PO; +ASHW500C PO; +B-12100010 PO; -CEFD1CAP8 PO; +CEFD300C41 PO; +CO Q100C10 PO; -CYMB60CA3 PO; +CYMB60CA4 PO; +FISH1000 PO; +LISI40TA4 PO; +METF500T13 PO; -MONT10TA10; +MONT10TA97; +OXYC1TAB23 PO; +PERC5TAB12 PO; +PREG100CA PO; +TUMERIC PO; +VITMTA PO
== END ==
LOC: M RAD 11:41
PROVIDERS: ATTEND Internal Medicine Pulmonary Disease
DX: R06.00 Dyspnea, unspecified (principal); J45.909 Unspecified asthma, uncomplicated; Z79.52 Long term (current) use of systemic steroids; Z79.899 Other long term (current) drug therapy

== ENCOUNTER 2021-11-07 19:51 | Emergency (ER) | payer MEDICARE, OTHER ==
[~2021-11-07] VITALS: Ht 182.9 cm; Wt 124.0 kg
[~2021-11-07 19:51] MED LIST changes: -ASHW500C PO; -B-12100010 PO; -CO Q100C10 PO; -FISH1000 PO; -LISI40TA4 PO; -METF500T13 PO; -OXYC1TAB23 PO; -PERC5TAB12 PO; -PREG100CA PO; -TUMERIC PO; -VITMTA PO
[2021-11-07] MEDS ORDERED: MORPHINE 10 MG/ML 1ML VIAL IM ONE (23:05)
[2021-11-08] MEDS ORDERED: MORPHINE 4 MG/ML 1ML VIAL/SYRINGE IV ONE (00:25)
[2021-11-08] MEDS ORDERED: PERC5TAB12 PO (01:19)
[2021-11-08] MEDS ORDERED: OXYCODONE/APAP 5MG/325MG(BULK FOR ED) 1 TABLET PO ONE (01:20)
[2021-11-08 01:30] VITALS: BP 142/88
[2021-11-12] MEDS ORDERED: LISI40TA4 PO (11:05)
[2021-11-12] MEDS ORDERED: PREG100CA PO (11:05)
[2021-11-12] MEDS ORDERED: METF500T13 PO (11:05)
[2021-11-12] MEDS ORDERED: VITMTA PO (11:06)
[2021-11-12] MEDS ORDERED: B-12100010 PO (11:06)
[2021-11-12] MEDS ORDERED: ASHW500C PO (11:23)
[2021-11-12] MEDS ORDERED: TUMERIC PO (11:23)
[2021-11-12] MEDS ORDERED: CO Q100C10 PO (11:23)
[2021-11-12] MEDS ORDERED: FISH1000 PO (11:23)
== END 2021-11-08 01:31 | disposition home or self-care (01) ==
LOC: M ED 19:51
DX: S82.832A Other fracture of upper and lower end of left fibula, initial encounter for closed fracture (principal); X58.XXXA Exposure to other specified factors, initial encounter; Y92.89 Other specified places as the place of occurrence of the external cause; E11.9 Type 2 diabetes mellitus without complications; I10 Essential (primary) hypertension; J45.909 Unspecified asthma, uncomplicated; E78.5 Hyperlipidemia, unspecified; G62.9 Polyneuropathy, unspecified; K21.9 Gastro-esophageal reflux disease without esophagitis; Z88.8 Allergy status to other drugs, medicaments and biological substances; Z79.899 Other long term (current) drug therapy
CPT/HCPCS: 29515; 73590; 73610; 73630; 96372; 96374; 99284; J2270

== ENCOUNTER → 2021-11-08 | Outpatient (CLI) | payer MEDICARE, OTHER ==
[~2021-11-08] MED LIST changes: +ASHW500C PO; +B-12100010 PO; +CO Q100C10 PO; +FISH1000 PO; +LISI40TA4 PO; +METF500T13 PO; +PERC5TAB12 PO; +PREG100CA PO; +TUMERIC PO; +VITMTA PO
== END ==
LOC: M SOG 15:25
PROVIDERS: ATTEND Physician Assistant
DX: S82.61XD Displaced fracture of lateral malleolus of right fibula, subsequent encounter for closed fracture with routine healing (principal)

== ENCOUNTER → 2021-11-11 | Outpatient (CLI) | payer MEDICARE, OTHER | LOC: M LABSMTC 10:18 | PROVIDERS: ATTEND Anesthesiology | DX: Z01.812 Encounter for preprocedural laboratory examination (principal); Z11.52 Encounter for screening for COVID-19 ==

== ENCOUNTER 2021-11-15 06:04 | Day surgery (SDC) | payer MEDICARE, OTHER ==
[~2021-11-15] VITALS: Ht 185.4 cm; Wt 112.5 kg
[~2021-11-15 06:04] MED LIST changes: +LIDOCAINE 1% MDV 20ML VIAL SQ PRN; +LR 1,000 ML IV ONE; +ceFAZolin SOD 2 GM in IV 1 EA IV ONE
[2021-11-15] MEDS ORDERED: LIDOCAINE 1% MDV 20ML VIAL XX ONE (07:15)
[2021-11-15] MEDS ORDERED: dexameTHASONE 10MG/1ML VIAL PRES.FREE (J1100 PER 1MG) XX ONE (07:15)
[2021-11-15] MEDS ORDERED: BUPIVACAINE HCL 0.25% 30ML VIAL As Ordered ONE (07:15)
[2021-11-15] MEDS ORDERED: ROPIvacaine 0.5% 30ML INJECTION (J2795 PER 1MG) XX ONE (07:15)
[2021-11-15] MEDS ORDERED: BACITRACIN OINTMENT 30GM TUBE As Ordered ONE (07:15)
[2021-11-15] MEDS ORDERED: METOCLOPRAMIDE INJ 10MG/2ML VIAL (J2765 PER 1) As Ordered ONE (07:16)
[2021-11-15] MEDS ORDERED: LIDOCAINE 2% 100MG/5ML SDV (FOR ANES.) As Ordered ONE (07:16)
[2021-11-15] MEDS ORDERED: ONDANSETRON 4MG/2ML VIAL As Ordered ONE (07:16)
[2021-11-15] MEDS ORDERED: fentaNYL 100 MCG/2 ML INJECTION As Ordered ONE (07:16)
[2021-11-15] MEDS ORDERED: propofoL 200 MG/20 ML VIAL As Ordered ONE (07:16)
[2021-11-15] MEDS ORDERED: dexameTHASONE 4 MG/ML 1ML VIAL (J1100 PER 1MG) As Ordered ONE (07:16)
[2021-11-15] MEDS ORDERED: MIDAZOLAM INJ 2MG/2ML VIAL (J2250 PER 1MG) IV PRN (07:20)
[2021-11-15] MEDS ORDERED: fentaNYL 100 MCG/2 ML INJECTION IV PRN (07:20)
[2021-11-15] MEDS ORDERED: EPINEPHrine INJ 1 MG/ML 1ML AMP As Ordered ONE (08:30)
[2021-11-15] MEDS ORDERED: VASOPRESSIN INJ 20 UNITS/ML VIAL As Ordered ONE (08:30)
[2021-11-15] MEDS ORDERED: PHENYLEPHRINE 10MG/ML 1ML VIAL (J2370 PER 1) As Ordered ONE (08:30)
[2021-11-15] MEDS ORDERED: KETOROLAC 60MG 2ML VIAL As Ordered ONE (09:15)
[2021-11-15] MEDS ORDERED: OXYC1TAB23 PO (09:42)
[2021-11-15] MEDS ORDERED: HYDROMORPHONE HCL 0.5 MG/ 0.5 ML SYRINGE (J1170 PER 1) IV PRN (10:00)
[2021-11-15] MEDS ORDERED: ONDANSETRON 4MG/2ML VIAL IV PRN (10:00)
[2021-11-15] MEDS ORDERED: oxyCODONE 5MG TAB PO PRN (10:00)
[2021-11-15] MEDS ORDERED: LR 1,000 ML IV SCH (10:00)
[2021-11-15] MEDS: fentaNYL 100 MCG/2 ML INJECTION IV PRN ×3 (10:08→10:25)
[2021-11-15 12:30] VITALS: BP 118/76
== END 2021-11-15 12:39 | disposition home or self-care (01) ==
LOC: M SDC 06:04
PROVIDERS: ATTEND Orthopaedic Surgery Hand Surgery
DX: S82.431A Displaced oblique fracture of shaft of right fibula, initial encounter for closed fracture (principal); X58.XXXA Exposure to other specified factors, initial encounter; Y92.89 Other specified places as the place of occurrence of the external cause; J45.909 Unspecified asthma, uncomplicated; E11.9 Type 2 diabetes mellitus without complications; I10 Essential (primary) hypertension; E55.9 Vitamin D deficiency, unspecified; E78.00 Pure hypercholesterolemia, unspecified; F41.9 Anxiety disorder, unspecified; G47.33 Obstructive sleep apnea (adult) (pediatric); G62.9 Polyneuropathy, unspecified; K21.9 Gastro-esophageal reflux disease without esophagitis; Z86.16 Personal history of COVID-19; Z79.899 Other long term (current) drug therapy; Z79.84 Long term (current) use of oral hypoglycemic drugs; Z79.51 Long term (current) use of inhaled steroids; Z99.89 Dependence on other enabling machines and devices; Z88.8 Allergy status to other drugs, medicaments and biological substances
CPT/HCPCS: 27792; 76000; 93005; C1713; J0171; J0690; J1100; J1885; J2250; J2370; J2405; J2765; J2795; J3010

== ENCOUNTER → 2021-11-19 | Outpatient (CLI) | payer MEDICARE, OTHER ==
[~2021-11-19] MED LIST changes: -LIDOCAINE 1% MDV 20ML VIAL SQ PRN; -LR 1,000 ML IV ONE; +OXYC1TAB23 PO; -ceFAZolin SOD 2 GM in IV 1 EA IV ONE
== END ==
LOC: M SOG 08:03
PROVIDERS: ATTEND Physician Assistant
DX: S82.61XD Displaced fracture of lateral malleolus of right fibula, subsequent encounter for closed fracture with routine healing (principal)

== ENCOUNTER → 2021-11-28 | Outpatient (CLI) | payer MEDICARE, OTHER | LOC: M SOG 08:28 | PROVIDERS: ATTEND Physician Assistant | DX: S82.61XD Displaced fracture of lateral malleolus of right fibula, subsequent encounter for closed fracture with routine healing (principal); X58.XXXD Exposure to other specified factors, subsequent encounter; Y92.89 Other specified places as the place of occurrence of the external cause ==

== ENCOUNTER → 2022-01-06 | Outpatient (CLI) | payer MEDICARE, OTHER | LOC: M SOG 11:15 | PROVIDERS: ATTEND Orthopaedic Surgery Hand Surgery | DX: S82.61XD Displaced fracture of lateral malleolus of right fibula, subsequent encounter for closed fracture with routine healing (principal) ==

== ENCOUNTER → 2022-01-21 | Outpatient (CLI) | payer MEDICARE, OTHER | LOC: M SOG 07:52 | PROVIDERS: ATTEND Orthopaedic Surgery Hand Surgery | DX: S82.61XD Displaced fracture of lateral malleolus of right fibula, subsequent encounter for closed fracture with routine healing (principal) ==

== ENCOUNTER → 2022-03-04 | Outpatient (CLI) | payer MEDICARE, OTHER | LOC: M SOG 07:53 | PROVIDERS: ATTEND Physician Assistant | DX: S82.61XD Displaced fracture of lateral malleolus of right fibula, subsequent encounter for closed fracture with routine healing (principal); X58.XXXD Exposure to other specified factors, subsequent encounter; Y92.89 Other specified places as the place of occurrence of the external cause ==

== ENCOUNTER → 2022-03-25 | Outpatient (CLI) | payer MEDICARE, OTHER | LOC: M LAB 10:04 | PROVIDERS: ATTEND Specialist | DX: R97.20 Elevated prostate specific antigen [PSA] (principal) ==

== ENCOUNTER → 2023-02-10 | Outpatient (CLI) | payer MEDICARE, OTHER ==
[~2023-02-10] MED LIST changes: -HYZA100T6 PO; +LOSA-536 PO
== END ==
LOC: M RAD 07:58
PROVIDERS: ATTEND Internal Medicine Pulmonary Disease
DX: J45.20 Mild intermittent asthma, uncomplicated (principal); R05.9 Cough, unspecified

== ENCOUNTER → 2023-03-03 | Outpatient (CLI) | payer MEDICARE, OTHER | LOC: M SOG 09:35 | PROVIDERS: ATTEND Orthopaedic Surgery Hand Surgery | DX: S82.61XD Displaced fracture of lateral malleolus of right fibula, subsequent encounter for closed fracture with routine healing (principal) ==

== ENCOUNTER → 2024-08-25 | Outpatient (REF) | payer MEDICARE, OTHER ==
[~2024-08-25] MED LIST changes: +CEFD1CAP9 PO; -CEFD300C41 PO; +ROSU5TAB49; -ROSU5TAB5
== END ==
LOC: M LAB REF 17:22
PROVIDERS: ATTEND Otolaryngology
DX: B37.0 Candidal stomatitis (principal)

== ENCOUNTER → 2024-09-23 | Outpatient (CLI) | payer MEDICARE, OTHER ==
[2024-09-23 11:22] LABS: ALBUMIN 3.8 G/DL (3.2-5.2); ALKALINE PHOSPHATASE 111 U/L (40-129); ALT/SGPT 25 U/L (7.0-40); AST/SGOT 19 U/L (<34); BILIRUBIN,DIRECT < 0.1 MG/DL (<0.4); BILIRUBIN,TOTAL 0.4 MG/DL (0.3-1.2); TOTAL PROTEIN 6.9 G/DL (5.7-8.2)
== END ==
LOC: M LAB 10:14
PROVIDERS: ATTEND Otolaryngology
DX: B37.0 Candidal stomatitis (principal)

== ENCOUNTER → 2024-10-11 | Outpatient (REF) | payer MEDICARE, OTHER | LOC: M LAB REF 17:15 | PROVIDERS: ATTEND Otolaryngology | DX: B37.0 Candidal stomatitis (principal) ==